=== PATIENT | female | born 1965 | race Caucasian/White ===

== ENCOUNTER 2018-06-27 21:10 | Emergency (ER) | payer OTHER ==
[2018-06-27] MEDS ORDERED: DEXAMETHASONE 4 MG/ML VIAL ONE (22:23)
[2018-06-27] MEDS ORDERED: HYDROCODONE/APAP 10/325 TAB ONE (22:23)
--- NOTE | 2018-06-27 22:51 | ER ---
Nurse's Notes [facility] Name: Maggie Pagan Age: 53 yrs Sex: Female : 1965 Arrival Date: 06/27/2018 Time: 21:14 Bed 27 Private MD: Diagnosis: Zoster [herpes zoster] Presentation: 06/27 21:20 Presenting complaint: Patient states: left flank pain radiating to LLQ that began lp1 tonight; Denies any pain with urination, vomiting diarrhea; States some nausea at this time. Transition of care: patient was not received from another setting of care. Onset of symptoms was June 27, 2018. Risk Assessment: Do you want to hurt yourself or someone else? Patient reports no desire to harm self or others. Initial Sepsis Screen: Does the patient meet any 2 criteria? No. Patient's initial sepsis screen is negative. Does the patient have a suspected source of infection? No. Patient's initial sepsis screen is negative. Care prior to arrival: None. 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 - Social history:: Smoking status: Patient/guardian denies using tobacco. - Ebola Screening: : No symptoms or risks identified at this time. - Family history:: not pertinent. - Hospitalizations: : No recent hospitalization is reported. Screenin:23 Abuse screen: Denies threats or abuse. Denies injuries from another. Nutritional lp1 screening: No deficits noted. Tuberculosis screening: No symptoms or risk factors identified. Fall Risk None identified. Assessment: 21:50 General: Appears in no apparent distress. comfortable, Behavior is calm, cooperative, ca1 appropriate for age. Pain: Complains of pain in left low back and left mid back Pain currently is 8 out of 10 on a pain scale. Pain:. Neuro: Neuro: Level of Consciousness is awake, alert, obeys commands, Oriented to person, place, time, situation. Cardiovascular: Heart tones S1 S2 present Capillary refill < 3 seconds Patient's skin is warm and dry. Respiratory: Airway is patent Trachea midline Respiratory effort is even, unlabored, Respiratory pattern is regular, symmetrical, Breath sounds are clear bilaterally. GI: Abdomen is flat, non-distended, Bowel sounds present X 4 quads. Abd is soft and non tender X 4 quads. : No signs and/or symptoms were reported regarding the genitourinary system. EENT: No signs and/or symptoms were reported regarding the EENT system. Derm: Skin is intact, Skin is pink, warm \T\ dry. Rash noted that is red, on posterior aspect of left lateral abdomen and anterior aspect of left lateral abdomen. Musculoskeletal: Circulation, motion, and sensation intact. Capillary refill < 3 seconds. 22:46 Reassessment: Patient appears in no apparent distress at this time. Patient and/or ca1 family updated on plan of care and expected duration. Pain level reassessed. Patient is alert, oriented x 3, equal unlabored respirations, skin warm/dry/pink. Vital Signs: 21:22 BP 162 / 78; Pulse 64; Resp 18; Temp 97.8(O); Pulse Ox 100% on R/A; Weight 66.68 kg; lp1 Height 5 ft. 3 in. (160.02 cm); Pain 8/10; 22:46 BP 154 / 81; Pulse 63; Resp 19; Pulse Ox 100% on R/A; ca1 21:22 Body Mass Index 26.04 (66.68 kg, 160.02 cm) lp1 ED Course: 21:14 Patient arrived in ED. es 21:21 Triage completed. lp1 21:22 Arm band placed on right wrist. lp1 21:50 Patient has correct armband on for positive identification. Bed in low position. Call ca1 light in reach. Side rails up X 1. Pulse ox on. NIBP on. Warm blanket given. 22:00 Robb Khanna MD is Attending Physician. rn 22:08 Maggie Regan, ALISTAIR is Primary Nurse. ca1 23:02 No provider procedures requiring assistance completed. Patient did not have IV access ca1 during this emergency room visit. Administered Medications: 22:12 Drug: [place] 10 mg-325 mg 1 tabs Route: PO; ca1 22:58 Follow up: Response: No adverse reaction; Pain is decreased ca1 22:15 Drug: Decadron 10 mg Route: IM; Site: right gluteus; ca1 22:59 Follow up: Response: No adverse reaction; Pain is decreased ca1 Outcome: 22:50 Discharge ordered by . rn 23:02 Discharged to home ambulatory, with significant other. ca1 23:02 Discharged to home ambulatory, with significant other. 23:02 Condition: stable 23:02 Discharge instructions given to patient, Instructed on discharge instructions, follow up and referral plans. medication usage, Demonstrated understanding of instructions, follow-up care, medications, Prescriptions given X 2. 23:03 Patient left the ED. ca1 Signatures: Romy Anand Roman, MD MD rn Shanon Borjas RN RN lp1 Maggie Regan RN RN ca1
--- NOTE | 2018-06-27 22:51 | EDPHYS ---
Physician Documentation [facility] Name: Maggie Pagan Age: 53 yrs Sex: Female : 1965 Arrival Date: 06/27/2018 Time: 21:14 Bed 27 Private MD: ED Physician Robb Khanna HPI: 06/27 22:47 This 53 yrs old Female presents to ER via Ambulatory with complaints of Back rn Pain, Abdominal Pain. 22:47 The patient presents with pain that is acute. The symptoms are located in the left rn flank. Onset: The symptoms/episode began/occurred 5 day(s) ago. The pain radiates to the abdomen. Associated signs and symptoms: Pertinent negatives: abdominal pain, chest pain, fever, hematuria, nausea, vomiting. Severity of symptoms: At their worst the symptoms were mild, in the emergency department the symptoms are unchanged. The patient has not experienced similar symptoms in the past. Reports left flank pain, radiates along ribs, no fever/vomiting/diarrhea/urinary symptoms. Seen today at clinic, told had shingles, given valacyclovir, and still having pain. No focal abd pain, no respiratory symptoms. . 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 - Social history:: Smoking status: Patient/guardian denies using tobacco. - Ebola Screening: : No symptoms or risks identified at this time. - Family history:: not pertinent. - Hospitalizations: : No recent hospitalization is reported. ROS: 22:47 Constitutional: Negative for fever, chills, and weight loss, Eyes: Negative for injury, rn pain, redness, and discharge, Cardiovascular: Negative for chest pain, palpitations, and edema, Respiratory: Negative for shortness of breath, cough, wheezing, and pleuritic chest pain, Abdomen/GI: + left flank pain Back: Negative for injury MS/Extremity: Negative for injury and deformity, Skin: + rash Neuro: Negative for headache, weakness, numbness, tingling, and seizure. Exam: 22:47 Constitutional: This is a well developed, well nourished patient who is awake, alert, rn and in no acute distress. Head/Face: Normocephalic, atraumatic. Eyes: Pupils equal round and reactive to light, extra-ocular motions intact. Lids and lashes normal. Conjunctiva and sclera are non-icteric and not injected. Cornea within normal limits. Periorbital areas with no swelling, redness, or edema. ENT: MMM Respiratory: No increased work of breathing, no retractions or nasal flaring. Abdomen/GI: soft, non-tender Back: No spinal tenderness. No costovertebral tenderness. Full range of motion. Skin: + vesicular rash along left flank, stops at midline MS/ Extremity: Pulses equal, no cyanosis. Neurovascular intact. Full, normal range of motion. Equal circumference. Neuro: Awake and alert, GCS 15, oriented to person, place, time, and situation. Cranial nerves II-XII grossly intact. Motor strength 5/5 in all extremities. Sensory grossly intact. Vital Signs: 21:22 BP 162 / 78; Pulse 64; Resp 18; Temp 97.8(O); Pulse Ox 100% on R/A; Weight 66.68 kg; lp1 Height 5 ft. 3 in. (160.02 cm); Pain 8/10; 22:46 BP 154 / 81; Pulse 63; Resp 19; Pulse Ox 100% on R/A; ca1 21:22 Body Mass Index 26.04 (66.68 kg, 160.02 cm) lp1 MDM: 22:00 Patient medically screened. rn 22:47 Differential diagnosis: shingles. Data reviewed: vital signs, nurses notes, and as a rn result, I will discharge patient. Counseling: I had a detailed discussion with the patient and/or guardian regarding: the historical points, exam findings, and any diagnostic results supporting the discharge/admit diagnosis, the need for outpatient follow up, to return to the emergency department if symptoms worsen or persist or if there are any questions or concerns that arise at home. Response to treatment: the patient's symptoms have mildly improved after treatment. Special discussion: I discussed with the patient/guardian in detail that at this point there is no indication for admission to the hospital. It is understood, however, that if the symptoms persist or worsen the patient needs to return immediately for re-evaluation. Administered Medications: 22:12 Drug: [place] 10 mg-325 mg 1 tabs Route: PO; ca1 22:58 Follow up: Response: No adverse reaction; Pain is decreased ca1 22:15 Drug: Decadron 10 mg Route: IM; Site: right gluteus; ca1 22:59 Follow up: Response: No adverse reaction; Pain is decreased ca1 Disposition: 06/27/18 22:50 Discharged to Home. Impression: Zoster [herpes zoster]. - Condition is Stable. - Discharge Instructions: Shingles. - Prescriptions for Tylenol- Codeine #3 300-30 mg Oral Tablet - take 2 tablets by ORAL route every 6 hours As needed; 20 tablet. Medrol (Lonnie) 4 mg Oral Tablets, Dose Pack - take 1 tablet by ORAL route as directed - follow package instructions; 1 packet. - Medication Reconciliation Form, Thank You Letter, Antibiotic Education, Prescription Opioid Use form. - Follow up: Private Physician; When: As needed; Reason: Recheck today's complaints, Re-evaluation by your physician. - Problem is new. - Symptoms have improved. Signatures: Robb Khanna MD MD rn BorjasShanon RN RN lp1 AcMaggie recio RN RN ca1 Corrections: (The following items were deleted from the chart) 23:03 22:50 06/27/2018 22:50 Discharged to Home. Impression: Zoster [herpes zoster]. ca1 Condition is Stable. Forms are Medication Reconciliation Form, Thank You Letter, Antibiotic Education, Prescription Opioid Use. Follow up: Private Physician; When: As needed; Reason: Recheck today's complaints, Re-evaluation by your physician. Problem is new. Symptoms have improved. rn
== END 2018-06-27 23:03 | disposition home or self-care (01) ==
LOC: ER 21:10
DX: B02.9 Zoster without complications (principal); I10 Essential (primary) hypertension; E03.9 Hypothyroidism, unspecified